=== PATIENT | male | born 1970 | race Caucasian/White ===

== ENCOUNTER 2024-08-21 20:26 | Emergency (ER) | payer BC, OTHER ==
[2024-08-21] MEDS: ceFAZolin 1 GM Vial IM ONE (21:54)
[2024-08-22] MEDS: Diphtheria,Pertussis(Acell),Tetanus Vaccine 0.5 ML Syringe IM ONE (03:15)
== END 2024-08-21 22:13 | disposition home or self-care (01) ==
LOC: KA.ED 20:26
DX: S62.655B Nondisplaced fracture of middle phalanx of left ring finger, initial encounter for open fracture (principal); Z23 Encounter for immunization; W23.1XXA Caught, crushed, jammed, or pinched between stationary objects, initial encounter; Y93.89 Activity, other specified
CPT/HCPCS: 73130-LT; 90471; 96372; 99283; 99283-25; J0690

== ENCOUNTER 2024-09-13 17:08 | Emergency (ER) | payer BC, OTHER | END 2024-09-13 17:35 | disposition home or self-care (01) | LOC: KA.ED 17:08 | DX: S00.461A Insect bite (nonvenomous) of right ear, initial encounter (principal); I10 Essential (primary) hypertension; E78.00 Pure hypercholesterolemia, unspecified; Z79.899 Other long term (current) drug therapy; W57.XXXA Bitten or stung by nonvenomous insect and other nonvenomous arthropods, initial encounter; Y93.89 Activity, other specified | CPT/HCPCS: 69200; 99282-25 ==